=== PATIENT | female | born 2000 | race Caucasian/White ===

== ENCOUNTER 2022-03-17 21:53 | Emergency (ER) | payer BC ==
[~2022-03-17] VITALS: Ht 180.3 cm; Wt 100.0 kg
[2022-03-18] MEDS ORDERED: NAPR-837 PO (04:23)
[2022-03-18] MEDS ORDERED: KETOROLAC 60MG 2ML VIAL IM ONE (04:25)
[2022-03-18 04:30] VITALS: BP 143/79
== END 2022-03-18 04:46 | disposition home or self-care (01) ==
LOC: M ED 21:53
DX: R07.89 Other chest pain (principal); J45.909 Unspecified asthma, uncomplicated
CPT/HCPCS: 93005; 96372; 99284; J1885